=== PATIENT | female | born 1950 | race Caucasian/White ===

== ENCOUNTER 2016-10-17 05:16 | Inpatient (IN) | payer OTHER ==
[2016-10-15 11:38] LABS: MANUAL DIFF NEEDED? NO; URINE MICRO REVIEW NEEDED? NO; URINE SOURCE CLEAN CATCH
--- NOTE | 2016-10-15 11:40 | EKG Report ---
Test Performed on : 10/15/2016 11:12:21 AM Test Reason : PAT Blood Pressure : / mmHG Vent. Rate : 072 BPM Atrial Rate : 072 BPM P-R Int : 110 ms QRS Dur : 076 ms QT Int : 412 ms P-R-T Axes : 084 086 045 degrees QTc Int : 451 ms Sinus rhythm. with short TN Minimal voltage criteria for LVH, may be normal variant Borderline ECG No previous ECGs available Confirmed by Lena ROBLES, Mario Andre ([id number]) on 10/16/2016 9:28:59 AM
[2016-10-15 11:52] LABS: BILIRUBIN URINE NEGATIVE (NEGATIVE); BLOOD URINE NEGATIVE (NEGATIVE); COLOR STRAW; GLUCOSE URINE NEGATIVE (NEGATIVE); LEUKOCYTES URINE NEGATIVE (NEGATIVE); NITRITE URINE NEGATIVE (NEGATIVE); PROTEIN URINE NEGATIVE (NEGATIVE); SP GRAVITY URINE 1.001; TURBIDITY URINE CLEAR (CLEAR); UROBILINOGEN URINE NORMAL (NORMAL)
[2016-10-15 11:53] LABS: UR EPITHELIAL CELLS <10 /HPF (<10); URINE BACTERIA NEGATIVE /HPF; URINE RBC <10 /HPF (<10); URINE WBC <10 /HPF (<10)
[2016-10-15 12:00] LABS: BASO% 1.4 % (0.0-0.8); EOS# 0.06 X1000 (0.0-0.7); EOS% 0.9 % (0.0-10.0); HEMATOCRIT 40.8 % (37.0-47.0); HEMOGLOBIN 13.4 g/dL (12.0-16.0); IMM GRAN# 0.02 X1000 (0.0-0.04); IMM GRAN% 0.3 % (0.0-0.5); LYMPH# 2.78 X1000 (1.2-3.4); LYMPH% 39.7 % (20.5-51.1); MCH 29.2 PG (27-31); MCHC 32.8 g/dL (33-37); MCV 88.9 FL (81-99); MONO# 0.57 X1000 (0.11-0.59); MONO% 8.1 % (1.7-9.3); NEUT% 49.6 % (42.2-75.2); PLT 407 X1000 (130-400); RBC 4.59 XMIL (4.2-5.4)
[2016-10-15 12:24] LABS: AGAP 13; BUN 7 mg/dL (8-22); CALCIUM 9.3 mg/dL (8.8-10.2); CHLORIDE 100 mmol/L (98-107); COSMO 276; POTASSIUM 4.3 mmol/L (3.5-5.1); SODIUM 139 mmol/L (136-145); TCO2 26 mmol/L (25-35)
--- NOTE | 2016-10-15 12:59 | Diag Imaging Result Document ---
PROCEDURE NAME: CHEST-2 VIEWS - 10/15/2016 2 VIEWS OF THE CHEST: FINDINGS: There is COPD. There is no evidence of acute cardiac or pulmonary disease and no previous studies are available for comparison. IMPRESSION: COPD.
[2016-10-17] MEDS ORDERED: LR 1,000 ML ONE ×2 (05:30→05:31)
[2016-10-17] MEDS ORDERED: FLAGYL 1000 MG/NS 200 ML IV ONE (06:00)
[2016-10-17] MEDS ORDERED: MEFOXIN 1 GM/NS 50 ML IV ONE (06:00)
[2016-10-17] MEDS ORDERED: FENTANYL ONE (06:32)
[2016-10-17] MEDS ORDERED: DIPRIVAN 1% ONE (06:32)
[2016-10-17] MEDS ORDERED: ENTEREG ONE (06:54)
[2016-10-17] MEDS ORDERED: SODIUM CHLORIDE 0.9% 30 ML ONE (07:22)
[2016-10-17] MEDS ORDERED: MARCAINE 0.25% PF ONE ×2 (07:22→07:23)
[2016-10-17] MEDS ORDERED: EXPAREL 1.3% ONE (07:23)
[2016-10-17] MEDS: MORPHINE ONE ×2 (09:05→09:59)
[2016-10-17] MEDS ORDERED: D5 1/2 NS 1,000 ML ONE (09:06)
[2016-10-17] MEDS ORDERED: NEOSTIGMINE ONE (09:14)
[2016-10-17] MEDS ORDERED: LR 2,000 ML ONE (09:15)
[2016-10-17] MEDS ORDERED: XYLOCAINE-MPF 2% ONE (09:15)
[2016-10-17] MEDS ORDERED: DECADRON ONE (09:15)
[2016-10-17] MEDS ORDERED: QUELICIN (DOSE) ONE (09:15)
[2016-10-17] MEDS ORDERED: ZOFRAN ONE (09:15)
[2016-10-17] MEDS ORDERED: ROBINUL ONE (09:15)
[2016-10-17] MEDS ORDERED: NORCURON ONE (09:15)
--- NOTE | 2016-10-17 10:00 | OPERATIVE NOTE ---
PROCEDURE DATE: 10/17/2016 SURGEON: Stan Delgado MD PREOPERATIVE DIAGNOSIS: Colon tumor. POSTOPERATIVE DIAGNOSIS: Colon tumor. PROCEDURE PERFORMED: Cystoscopic exam, place bilateral open-ended ureteral stents. ANESTHESIA: General endotracheal. FINDINGS: Cystoscopic exam: Urethra-greater than 21-[place], without stricture. Bladder-normal ureteral orifices bilaterally. No papillary lesions or trabeculations. exam: Normal external female. No adnexal masses. Palpably normal bladder. INDICATION FOR PROCEDURE: This 66-year-old female has a colon tumor and is going to undergo a low anterior resection. Open-ended ureteral stents are needed to facilitate palpation of each ureter. DESCRIPTION OF PROCEDURE: After informed consent was obtained from the patient, her receiving IV antibiotics, she was taken to the main OR, placed in supine position. General endotracheal anesthesia was achieved. She was then placed in the low lithotomy position and prepped and draped in the usual sterile fashion for cystoscopic exam. A 21-[place] sheath cystoscope was passed through the patient's urethra and into the bladder with findings noted above. A 0.035 zip wire was passed through the cystoscope, engaged the left ureteral orifice advanced up into the kidney. A 5-[place] open ended ureteral catheter was passed over the zip wire and up into the ureter for a distance of about 18 cm the wire was removed keeping the open-ended catheter in place. The right side was accomplished similarly. Both stents were placed to gravity through the Izaguirre catheter. She tolerated the procedure well. ESTIMATED BLOOD LOSS: 0. She was turned over to Dr. Calvin in good condition.
--- NOTE | 2016-10-17 10:08 | OPERATIVE NOTE ---
PROCEDURE DATE: 10/17/2016 PREOPERATIVE DIAGNOSIS: Cancer, descending colon. POSTOPERATIVE DIAGNOSIS: Cancer, descending colon. PROCEDURE PERFORMED: Exploratory laparotomy and resection of mid descending tumor with side-to- side anastomosis. SURGEON: Mario Calvin MD DESCRIPTION OF PROCEDURE: The patient was initially brought to the operating room. Dr. Delgado performed cystoscopy with placement of bilateral ureteral catheters. He subsequently left the suite. The patient's abdomen was broadly prepped and draped in the appropriate manner for laparotomy. An infraumbilical to pubis midline incision was taken sharply down through skin and subcutaneous tissue. The patient had had previous hysterectomy. On entry into the abdomen, immediately evident was the tumor in the mid descending colon. It was freed up along the white line of Toldt. An area distal and proximal to the colon was subsequently freed up and divided with a PAUL stapler. Mesenteric attachments were taken down with the LigaSure instrument. The distal and proximal colon was freed up and a ncca-me-ihfi anastomosis was performed with a PAUL and subsequently closed with a TA 45. The anastomosis would be admit the tip of 2 fingers. There was no tension. The area was bossed with interrupted 3-0 silk sutures. The wound was irrigated after accounting for all laparotomy sponges. The closure was subsequently initiated. Palpation of the left lobe of the liver revealed no evidence of tumor. The right lobe of the liver was socked in from previous open cholecystectomy, so it was not palpated. There was no other evidence of malignant disease. The omentum was socked into the gallbladder incision. The peritoneum was subsequently closed with running #1 Vicryl. The fascia was closed with interrupted #1 Maxon. The subcu was debrided and the skin was closed with stainless steel clips. A sterile dressing was applied. The ureteral catheters were removed intact. The patient was awakened and extubated in the operating room and transferred to recovery. Estimated blood loss was less than 100 mL.
[2016-10-17] MEDS ORDERED: MORPHINE PCA ONE (10:20)
[2016-10-17] MEDS ORDERED: MORPHINE PCA IV PRN (10:58)
[2016-10-17] MEDS ORDERED: PHENERGAN IV PRN (10:58)
[2016-10-17] MEDS ORDERED: SODIUM CHLORIDE 0.9% INJ PRN (10:58)
[2016-10-17] MEDS ORDERED: BENADRYL IV PRN (10:58)
[2016-10-17] MEDS ORDERED: NARCAN IV PRN (10:58)
[2016-10-17] MEDS: LR 1,000 ML IV SCH (11:49)
[2016-10-17] MEDS: FLAGYL 1000 MG/NS 200 ML IV SCH (17:46)
[2016-10-17] MEDS: D5 1/2 NS 1,000 ML IV SCH (17:51)
[2016-10-17] MEDS: MEFOXIN 1 GM/D5W 50 ML IV SCH (18:44)
[2016-10-17] MEDS: ENTEREG PO SCH (20:17)
[2016-10-17] MEDS: PERIDEX MT SCH (20:17)
[2016-10-18] MEDS: FLAGYL 1000 MG/NS 200 ML IV SCH ×2 (01:40→10:06)
[2016-10-18] MEDS: MEFOXIN 1 GM/D5W 50 ML IV SCH ×2 (03:24→12:06)
[2016-10-18 06:25] LABS: MANUAL DIFF NEEDED? NO
[2016-10-18 07:00] LABS: AGAP 12; BUN 5 mg/dL (8-22); CALCIUM 8.6 mg/dL (8.8-10.2); CHLORIDE 103 mmol/L (98-107); COSMO 278; POTASSIUM 3.7 mmol/L (3.5-5.1); SODIUM 139 mmol/L (136-145); TCO2 24 mmol/L (25-35)
[2016-10-18 07:44] LABS: BASO% 0.1 % (0.0-0.8); HEMATOCRIT 33.7 % (37.0-47.0); HEMOGLOBIN 11.1 g/dL (12.0-16.0); IMM GRAN# 0.02 X1000 (0.0-0.04); IMM GRAN% 0.2 % (0.0-0.5); LYMPH% 13.4 % (20.5-51.1); MCH 29.3 PG (27-31); MCHC 32.9 g/dL (33-37); MCV 88.9 FL (81-99); NEUT% 81.3 % (42.2-75.2); PLT 324 X1000 (130-400); RBC 3.79 XMIL (4.2-5.4)
[2016-10-18] MEDS: D5 1/2 NS 1,000 ML IV SCH (10:05)
[2016-10-18] MEDS: PERIDEX MT SCH ×2 (10:05→22:03)
[2016-10-18] MEDS: ENTEREG PO SCH ×2 (10:06→22:03)
[2016-10-18] MEDS: LR 1,000 ML IV SCH (15:41)
[2016-10-18] MEDS: LOVENOX SUBQ SCH (16:21)
[2016-10-19] MEDS: D5 1/2 NS 1,000 ML IV SCH ×2 (04:58→18:48)
[2016-10-19 05:34] LABS: MANUAL DIFF NEEDED? NO
[2016-10-19 05:45] LABS: BASO% 0.3 % (0.0-0.8); EOS# 0.06 X1000 (0.0-0.7); EOS% 0.7 % (0.0-10.0); HEMATOCRIT 34.2 % (37.0-47.0); HEMOGLOBIN 11.2 g/dL (12.0-16.0); IMM GRAN# 0.03 X1000 (0.0-0.04); IMM GRAN% 0.3 % (0.0-0.5); LYMPH# 3.34 X1000 (1.2-3.4); LYMPH% 36.6 % (20.5-51.1); MCH 29.4 PG (27-31); MCHC 32.7 g/dL (33-37); MCV 89.8 FL (81-99); MONO# 0.58 X1000 (0.11-0.59); MONO% 6.4 % (1.7-9.3); MPV 10.5 FL (7.4-10.4); NEUT% 55.7 % (42.2-75.2); PLT 324 X1000 (130-400); RBC 3.81 XMIL (4.2-5.4)
[2016-10-19] MEDS: ENTEREG PO SCH ×2 (08:29→21:29)
[2016-10-19] MEDS: PERIDEX MT SCH ×2 (08:29→21:29)
[2016-10-19] MEDS ORDERED: SALINE LOCK IV FLUID XX ONE (10:16)
[2016-10-19] MEDS ORDERED: ZOFRAN PO PRN (10:17)
[2016-10-19] MEDS ORDERED: NORCO-10 PO PRN (10:17)
[2016-10-19] MEDS: LOVENOX SUBQ SCH ×2 (18:49→18:50)
[2016-10-19] MEDS: COLACE PO SCH (21:29)
[2016-10-20] MEDS ORDERED: STERILE WATER INJ. ONE (07:29)
[2016-10-20] MEDS ORDERED: HEMOCYTE PLUS CAPSULE PO SCH (09:00)
[2016-10-20] MEDS: COLACE PO SCH (09:16)
[2016-10-20] MEDS: ENTEREG PO SCH (09:17)
[2016-10-20] MEDS: PERIDEX MT SCH (09:17)
[2016-10-20 11:17] VITALS: BP 140/62
[2016-10-20] MEDS: D5 1/2 NS 1,000 ML IV SCH (13:57)
--- NOTE | 2016-10-23 21:25 | DISCHARGE SUMMARY ---
ADMISSION DATE: 10/17/2016 DISCHARGE DATE: 10/20/2016 DIAGNOSIS: Carcinoma of the colon [id number]. PROCEDURE: Partial left colectomy. HOSPITAL COURSE: The patient is a 66-year-old, white female referred by Dr. Zavaleta for evaluation of an apple ring obstructing lesion in the mid sigmoid. She underwent an outpatient mechanical and chemical bowel prep, and was admitted on the day of surgery. On exploration a lesion in the mid descending colon was visualized, it was resected with 3-4 cm margins, there were 18 negative nodes. Hospitalization was largely uneventful. She tolerated her dietary advancements. Began having flatus and bowel movements on day 2. She was subsequently allowed home on 10/20 to be seen in the office in 1 week's time. No plans for chemotherapy at this point.
== END 2016-10-20 14:07 | disposition home or self-care (01) | DRG 331 ==
LOC: PAT 05:16 → 4N 10:17 → OBSVTOIN 13:53
PROVIDERS: ADMIT Surgery; ATTEND Surgery
PROC: 0T788DZ Dilation of Bilateral Ureters with Intraluminal Device, Via Natural or Artificial Opening Endoscopic (ICD-10-PCS; 2016-10-17)
PROC: 0DBM0ZZ Excision of Descending Colon, Open Approach (ICD-10-PCS; principal; 2016-10-17 07:00)
PROC: 0DBN0ZZ Excision of Sigmoid Colon, Open Approach (ICD-10-PCS; 2016-10-17 07:00)
DX: C18.6 Malignant neoplasm of descending colon (principal); F17.210 Nicotine dependence, cigarettes, uncomplicated; M81.0 Age-related osteoporosis without current pathological fracture; Z83.3 Family history of diabetes mellitus; Z80.9 Family history of malignant neoplasm, unspecified
CPT/HCPCS: 71020; 80048; 81001; 82378; 85025; 86850; 86900; 86901; 88307; 88309; 93005; 93010; 94761; 94799; C9290; J0330; J0694; J1100; J1650; J2270; J2405; J3010; J7120; J2710; S0020; S0030